=== PATIENT | male | born 1965 | race Caucasian/White ===

== ENCOUNTER 2018-04-20 11:00 | Day surgery (SDC) | payer OTHER ==
[2018-04-20] MEDS ORDERED: BUPIVACAINE 0.5% 30 ML SDV ONE ×2 (11:06)
[2018-04-20] MEDS ORDERED: LR 1,000 ML IV ONE (11:32)
[2018-04-20] MEDS ORDERED: ceFAZolin 2 GM/DEXTROSE 100 ML IV ONE (12:12)
--- NOTE | 2018-04-20 12:19 | PDHPUP ---
History & Physical Update H&P update statement: This history and physical update is based on an assessment of the patient which was completed after admission or registration (within 24 hours), but prior to the surgery/procedure. H&P update: H&P reviewed & patient examined, no change in patient's condition since H&P completed
[2018-04-20] MEDS ORDERED: MIDAZOLAM 2 MG/2 ML VIAL ONE (12:43)
[2018-04-20] MEDS ORDERED: PROPOFOL/EMULSION 500 MG/50 ML BOTTLE IV ONE (12:57)
--- NOTE | 2018-04-20 12:57 | PDANEPAE ---
ANE Past Medical History - Cardiovascular History Hx Hypertension: No Hx Arrhythmias: No Hx Chest Pain: No Hx Coronary Artery / Peripheral Vascular Disease: No Hx CHF / Valvular Disease: No Hx Palpitations: No - Pulmonary History Hx COPD: No Hx Asthma/Reactive Airway Disease: Yes Hx Recent Upper Respiratory Infection: No Hx Oxygen in Use at Home: No Hx Sleep Apnea: No Sleep Apnea Screening Result - Last Documented: Negative Pulmonary History Comment: exercise induced asthma - Neurologic History Hx Cerebrovascular Accident: No Hx Seizures: No Hx Dementia: No - Endocrine History Hx Diabetes: No - Renal History Hx Renal Disorders: No - Liver History Hx Hepatic Disorders: No - Neurological & Psychiatric Hx Hx Neurological and Psychiatric Disorders: No - Cancer History Hx Cancer: No - Congenital Disorder History Hx Congenital Disorders: No - GI History Hx Gastrointestinal Disorders: No - Other Health History Other Health History: scalp cysts removed 03/2018. wears glasses for reading - Chronic Pain History Chronic Pain: No - Surgical History Prior Surgeries: bilat knee meniscus repairs. knee scopes. right pinky finger with plate. bilat shoulder surgery. left great toe repair ANE Review of Systems Review of Systems: - Exercise capacity Exercise capacity: >=4 METS METS (RN): 5 METS ANE Patient History - Allergies Allergies/Adverse Reactions: No Known Allergies Allergy (Verified 04/06/18 11:17) - Home Medications Home medications: home medication list seen and reviewed Home Medications: Ventolin Hfa Inhaler PRN 03/22/16 [Last Taken 2 Weeks Ago ~04/06/18] Glucosamine/Chondroitin 04/06/18 [Last Taken 04/16/18] - NPO status NPO Status: no food or drink >8 hours NPO Since - Liquids (Date): 04/20/18 NPO Since - Liquids (Time): 09:28 NPO Since - Solids (Date): 04/19/18 NPO Since - Solids (Time): 22:30 - Anes Hx Anes Hx: no prior problems - Smoking Hx Smoking Status: Former smoker - Family Anes Hx Family Hx Anesthesia Complications: none ANE Labs/Vital Signs - Vital Signs Blood Pressure: 127/87 Heart Rate: 57 Respiratory Rate: 16 O2 Sat (%): 94 Height: 170.18 cm Weight: 83.915 kg ANE Anesthesia Plan Anesthesia Plan: MAC
[2018-04-20] MEDS ORDERED: fentaNYL 100 MCG/2 ML INJ IVP PRN (13:24)
[2018-04-20] MEDS ORDERED: LABETALOL HCL 5 MG/ML 20 ML MDV IVP PRN (13:24)
[2018-04-20] MEDS ORDERED: HYDROmorphONE/DILAUDID 2 MG/ML INJ IVP PRN (13:24)
[2018-04-20] MEDS ORDERED: NALOXONE HCL 0.4 MG/ML INJ IVP PRN (13:24)
[2018-04-20] MEDS ORDERED: PROMETHAZINE HCL 25 MG/ML INJ IVP PRN (13:24)
[2018-04-20] MEDS ORDERED: ACETAMINOPHEN 500 MG TAB PO PRN (13:24)
[2018-04-20] MEDS ORDERED: METOCLOPRAMIDE 10 MG/2 ML VIAL IVP PRN (13:24)
[2018-04-20] MEDS ORDERED: oxyCODONE IR 5 MG TAB PO PRN (13:24)
[2018-04-20] MEDS ORDERED: ONDANSETRON 4 MG/2 ML VIAL IVP PRN ×2 (13:24→13:54)
[2018-04-20] MEDS ORDERED: LR 500 ML IV PRN (13:24)
[2018-04-20] MEDS ORDERED: MEPERIDINE 25 MG/0.5 ML AMP IVP PRN (13:24)
[2018-04-20] MEDS ORDERED: PROPOFOL 200 MG/20 ML VIAL ONE (13:34)
[2018-04-20] MEDS ORDERED: DEXAMETHASONE 4 MG/ML VIAL ONE (13:40)
[2018-04-20] MEDS ORDERED: ONDANSETRON DISINTEGRATING 4 MG TAB PO PRN (13:54)
[2018-04-20] MEDS ORDERED: OXYCODONE/APAP 5/325 TAB PO PRN (13:54)
--- NOTE | 2018-04-20 14:51 | GOP ---
DATE OF OPERATION: 04/20/2018 SURGEON: Kishore Harrison DPM NEWSPAPER COLUMNIST: None. ANESTHESIA: MAC with local 20 mL 0.5% Marcaine plain. PREOPERATIVE DIAGNOSIS: 1. Hallux rigidus, right foot. 2. Transient synovitis, right foot. POSTOPERATIVE DIAGNOSIS: 1. Hallux rigidus, right foot. 2. Transient synovitis, right foot. PROCEDURE PERFORMED: 1. Repair hallux rigidus with 1st metatarsophalangeal joint implant arthroplasty, right foot. 2. Arthrocentesis, right foot. FINDINGS: Gross finding consistent with diagnosis. ESTIMATED BLOOD LOSS: 0. DESCRIPTION OF PROCEDURE: After identification, patient brought in the operating room, placed on the operating table in the supine position. Following IV sedation, local anesthesia obtained around the patient's right foot utilizing a total of 20 mL 0.5% Marcaine plain. The foot was then scrubbed, pr epped, and draped in the usual aseptic manner. Pneumatic ankle tourniquet was placed around the vick ent's right ankle with ample padding. An Esmarch bandage utilized to exsanguinate the patient's righ t lower extremity, and the pneumatic ankle tourniquet was then inflated. Attention was then directed to the medial aspect of the patient's right foot where a 4 cm linear long itudinal incision was made at the medial aspect of the 1st metatarsophalangeal joint. This incision was deepened through the subcutaneous tissue with care being taken to identify and retract all vital neurovascular structures. Bleeders were ligated and cauterized as necessary. The incision was deepe sherly to the level of the joint capsule where a linear capsulotomy was performed. Capsular structures were reflected medially and laterally, thus exposing the 1st metatarsophalangeal joint at the operati ve site. A McGlamry elevator was inserted from medial to lateral between the 1st metatarsal head and the sesamoid apparatus to serve as a release of adhesions. It was noted at this time that approxima tely 90% of the cartilage on the 1st metatarsal head was denuded. After appropriate sizing, a 10 mm drill was used in standard technique to create an aperture for the Cartiva implant. Cartiva implant was then inserted using standard technique. Position is excellent, fixation is stable. All redundan t bone spurs were excised and passed from the operative field. All remaining rough edges were smooth ed with a bone bur. The incision site and joint were flushed with copious amounts of normal sterile saline solution. Capsular structures were reapproximated utilizing 2-0 Vicryl. Subcutaneous tissue reapproximated using 3-0 Vicryl and skin reapproximated using 5-0 Vicryl in a running subcuticular dwyer ture technique. 4 mg dexamethasone injected in the operative site at the conclusion of the procedure . The incision site was then dressed with Steri-Strips, Chua silk, 4 x 4 gauze, Webril, Calin, Andres bandage. Patient transferred to the postoperative recovery room with vital signs stable, vascular st atus intact to the right foot. Patient tolerated procedure and anesthesia well. HEMOSTASIS: Right pneumatic ankle tourniquet inflated to 250 mmHg for 29 minutes. MATERIALS: Cartiva implant 10 mm x 1. INJECTABLES: 4 mg dexamethasone. CONDITION: Stable. /[id number]/MODL
[2018-04-20 15:05] VITALS: BP 123/59
== END 2018-04-20 15:32 | disposition home or self-care (01) ==
LOC: FSGY 11:00
PROVIDERS: ATTEND Podiatrist
PROC: 0SRM0JZ Replacement of Right Metatarsal-Phalangeal Joint with Synthetic Substitute, Open Approach (ICD-10-PCS; principal; 2018-04-20 12:30)
DX: M20.21 Hallux rigidus, right foot (principal); M67.371 Transient synovitis, right ankle and foot; J45.990 Exercise induced bronchospasm; Z87.891 Personal history of nicotine dependence
CPT/HCPCS: J0690; J1100; J2250; J2704